=== PATIENT | female | born 1965 | race Caucasian/White ===

== ENCOUNTER → 2018-01-04 | Outpatient (CLI) | payer OTHER ==
[~2018-01-04] VITALS: Ht 162.6 cm; Wt 136.5 kg
[~2018-01-04] MED LIST: 00186-0370-20 IH; AMBIEN 5MG TABLE5 MG PO; APRESOLINE 25MG25 MG PO; BACTRIM DS 8001 TAB PO; CATAPRES-TTS 10.1 M1 TD; DULCOLAX10 MG RC; HCTZ 25MG TAB25 MG PO; HYZAAR 50-12.1 UDTAB PO; INSLANT SC; K-DUR 2020 MEQ PO; LEXAPRO20 MG PO; LOPRESSOR100 MG PO; LOVENOX 4040 MG/0.4 SQ; MUCINEX1200 MG PO; NICODERM C21 MG/PATC TOP; NORVASC 10MG10 MG PO; NYSTATIN1 POW; PERFOROMIS20 MCG/2 M IH; PREDNISONE10 MG PO; PRIL40 PO; PRINZIDE 12.5 M1 TA1 PO; PROAIR HFA0.09 MG/AC IH; PROTONIX 40MG T40 MG PO; PULMICORT0.5 MG/2 M IH; RT SPIRIVA18 MCG IH; SSKI1 GM/ML PO; TAMIFLU 75MG75 MG PO; TAMIFLU30 MG PO; TENORMIN 2525 MG/TAB PO; THEO-DUR 2200 MG/TAB PO; WOMEN'S ONE DAI1 TAB PO; XANAX 1MG1 MG PO; ZESTRIL40 MG PO
[2018-01-04 08:13] VITALS: BP 176/104; PULSE 60
== END ==
LOC: LIGHT 08:07
DX: K21.9 Gastro-esophageal reflux disease without esophagitis (principal); R73.01 Impaired fasting glucose; F33.9 Major depressive disorder, recurrent, unspecified; Z68.43 Body mass index [BMI] 50.0-59.9, adult; Z71.3 Dietary counseling and surveillance
CPT/HCPCS: G0463

== ENCOUNTER → 2018-01-16 | Outpatient (CLI) | payer OTHER | LOC: LIGHT 08:45 | DX: Z01.89 Encounter for other specified special examinations (principal) ==

== ENCOUNTER → 2018-02-02 | Outpatient (CLI) | payer OTHER ==
[~2018-02-02] VITALS: Ht 162.6 cm; Wt 136.3 kg
[2018-02-02 13:03] VITALS: BP 122/80; PULSE 80
== END ==
LOC: LIGHT 11:46
DX: K21.9 Gastro-esophageal reflux disease without esophagitis (principal); R73.01 Impaired fasting glucose; F33.9 Major depressive disorder, recurrent, unspecified; Z68.43 Body mass index [BMI] 50.0-59.9, adult; Z71.3 Dietary counseling and surveillance
CPT/HCPCS: G0463

== ENCOUNTER → 2018-03-09 | Outpatient (CLI) | payer OTHER ==
[~2018-03-09] VITALS: Ht 162.6 cm; Wt 134.5 kg
[2018-03-09 11:22] VITALS: BP 152/84; PULSE 60
== END ==
LOC: LIGHT 10:41
DX: K21.9 Gastro-esophageal reflux disease without esophagitis (principal); R73.01 Impaired fasting glucose; F33.9 Major depressive disorder, recurrent, unspecified; Z68.43 Body mass index [BMI] 50.0-59.9, adult; Z71.3 Dietary counseling and surveillance
CPT/HCPCS: G0463

== ENCOUNTER → 2018-03-09 | Outpatient (CLI) | payer MEDICAID | LOC: LIGHT 09:51 | DX: Z01.89 Encounter for other specified special examinations (principal) ==

== ENCOUNTER → 2018-04-13 | Outpatient (CLI) | payer OTHER ==
[~2018-04-13] VITALS: Ht 162.6 cm; Wt 134.5 kg
[2018-04-13 13:33] VITALS: BP 155/90; PULSE 60
== END ==
LOC: LIGHT 13:09
DX: K21.9 Gastro-esophageal reflux disease without esophagitis (principal); R73.01 Impaired fasting glucose; F33.9 Major depressive disorder, recurrent, unspecified; Z68.43 Body mass index [BMI] 50.0-59.9, adult; Z71.3 Dietary counseling and surveillance
CPT/HCPCS: G0463

== ENCOUNTER 2018-06-28 16:20 | Inpatient (IN) | payer MEDICARE, MEDICAID ==
[~2018-06-28] VITALS: Ht 162.6 cm; Wt 139.9 kg
[2019-03-05] MEDS ORDERED: LIPITOR 40MG TA40 MG PO (14:17)
[2019-03-05] MEDS ORDERED: PLAVIX 75MG TAB75 MG PO (14:17)
[2019-04-09] MEDS ORDERED: ASPIRIN E.C. 8181 MG PO (15:13)
[2019-04-18] VITALS (10 sets, daily range): BP systolic 141–177; BP diastolic 70–93; PULSE 86–118; TEMP 98.4–98.5
[2019-04-18] MEDS ORDERED: PLAVIX 75MG TAB75 MG PO (10:05)
--- NOTE | 2019-04-18 17:51 | NUR ---
Patient received post op to room 321-2. Report from Marie in [place]. Patient very alert upon arrival to room. Patient has has complaints of pain & nausea. Nausea improved after Iv dilaudid & is now able to rest. Her Bp has been elevated. Scds ble. IVf to Right wrist. K pad for gas pain to her L.shoulder. Her family has left for the evening. Will report to night nurse
--- NOTE | 2019-04-18 18:13 | NUR ---
Dr. Sullivan aware of elevated BP, patient to get evening medication today per home regiment. Patient also to get blue gatorade 8oz prior to clears
--- NOTE | 2019-04-18 18:54 | NUR ---
Patient medicated with zofran & dilaudid for papin & nausea.
--- NOTE | 2019-04-18 20:49 | NUR ---
Patient rating pain 7/10 to shoulders and abdomen. Has IVF to right wrist infusing without redness or swelling. Has bandaids x4 to abdomen with FINESSE drain to bulb suction. Medicated with [place] 5/325 1 tab po at this time with other HS meds. Has been up to void without problem. Drinking blue gatorade as ordered.
--- NOTE | 2019-04-18 22:30 | NUR ---
Patient reports pain pill resolved shoulder pain. Rates pain 5/10 at this time.
--- NOTE | 2019-04-19 00:45 | NUR ---
Patient awake, medicated with Zofran 4mg IVP and [place] 5/325mg 2 tabs po at this time for pain 5/10. Up to bathroom, voids 200cc without problem. FINESSE drain with 20cc bloody drainage emptied and placed back to bulb suction.
[2019-04-19 03:49] VITALS: BP 177/92; PULSE 117; TEMP 98.7
--- NOTE | 2019-04-19 04:21 | NUR ---
Having a headache, has not had alot of oral fluids, B/P remains elevated. AM dose of Tenormin given as well as dose of Xanax for mild anxiety. Encouraged to drink fluids for headache.
[2019-04-19 05:35] VITALS: BP 157/78; PULSE 103
--- NOTE | 2019-04-19 05:39 | NUR ---
Recheck on B/P 157/78 and reports headache is improved.
[2019-04-19 08:09] VITALS: BP 182/84; PULSE 98; TEMP 98.7
--- NOTE | 2019-04-19 08:55 | NUR ---
Assessment completed, alert/oriented, vital signs stable/ hypertensive but a.m meds given and will reassess BP, she reports her pain is controlled and minimal at this time, abdomen is soft and BS +/ she had several liquid bowel movmements as well, blue gatorade was drank last night and none observed in FINESSE drain/ she has had her barium swallow study this morning, moderate amount of serosanguinous ouptut documents in FINESSE, incicison sites and drain site dressings are all C/D/I, surrounding skin looks good, she is tolerating some clear liquids without N/V, sitting at edge of the bed and denies needs, will continue to monitor
--- NOTE | 2019-04-19 10:35 | NUR ---
RUBY met with the patient to discuss discharge plan. The patient lives in [place] with her , Christian. She reports independence with ADLs and does not use any DME. The patient's PCP is Dr. Dk Pantoja and she receives her medications at [facility]. She reports no difficulties obtaining her meds. The patient does not have advanced directives, but she was interested in obtaining a form for DPOA-HC. RUBY provided. The patient plans to return home with her upon discharge. No additional needs at this time.
[2019-04-19 12:18] VITALS: BP 183/98; PULSE 103; TEMP 98.1
[2019-04-19 15:22] VITALS: BP 164/71; PULSE 101; TEMP 97.2
--- NOTE | 2019-04-19 18:33 | NUR ---
discharge orders discussed with patient, isntructed to follow up as scheduled, continued all home meds except plavix, isntructed to follow post op diet instrucitons strictly, scripts for Odon and Zofran given , IV removed, family present, MARKETING OPERATIONS COORDINATOR escorted them out the door
== END 2019-04-19 18:33 | disposition home or self-care (01) | DRG 621 ==
LOC: SURG 07-12 09:45 → INPTSU 04-18 09:05 → SURG 04-18 09:45
PROVIDERS: ADMIT Surgery
PROC: 0DB64Z3 Excision of Stomach, Percutaneous Endoscopic Approach, Vertical (ICD-10-PCS; principal; 2019-04-18 11:00)
DX: E66.01 Morbid (severe) obesity due to excess calories (principal); Z68.43 Body mass index [BMI] 50.0-59.9, adult; I10 Essential (primary) hypertension; I25.10 Atherosclerotic heart disease of native coronary artery without angina pectoris; G47.33 Obstructive sleep apnea (adult) (pediatric); J44.9 Chronic obstructive pulmonary disease, unspecified; E88.81 Metabolic syndrome and other insulin resistance; F32.9 Major depressive disorder, single episode, unspecified; M06.9 Rheumatoid arthritis, unspecified; I25.2 Old myocardial infarction; Z79.02 Long term (current) use of antithrombotics/antiplatelets; Z95.5 Presence of coronary angioplasty implant and graft
CPT/HCPCS: A9284; J0360; J0690; J1100; J1170; J1885; J2405; J2550; J2704; J3010; J7030; J7120

== ENCOUNTER → 2019-04-09 | Outpatient (CLI) | payer MEDICARE, MEDICAID ==
[~2019-04-09] MED LIST changes: +ASPIRIN E.C. 8181 MG PO; +LIPITOR 40MG TA40 MG PO; +PLAVIX 75MG TAB75 MG PO
== END ==
LOC: LIGHT 13:14
DX: K21.9 Gastro-esophageal reflux disease without esophagitis (principal); R73.01 Impaired fasting glucose; F32.9 Major depressive disorder, single episode, unspecified; E66.01 Morbid (severe) obesity due to excess calories; Z68.43 Body mass index [BMI] 50.0-59.9, adult; Z71.3 Dietary counseling and surveillance

== ENCOUNTER → 2019-05-28 | Outpatient (CLI) | payer MEDICARE, MEDICAID ==
[~2019-05-28] VITALS: Ht 162.6 cm; Wt 122.7 kg
[2019-05-28 15:35] VITALS: BP 106/70; PULSE 64
== END ==
LOC: LIGHT 04-30 15:30
DX: K21.9 Gastro-esophageal reflux disease without esophagitis (principal); R73.01 Impaired fasting glucose; Z98.84 Bariatric surgery status; E66.01 Morbid (severe) obesity due to excess calories; Z71.3 Dietary counseling and surveillance

== ENCOUNTER → 2019-09-17 | Outpatient (CLI) | payer MEDICARE, MEDICAID ==
[~2019-09-17] VITALS: Ht 162.6 cm; Wt 104.8 kg
[~2019-09-17] MED LIST changes: +ZANTAC 150150 MG PO
[2019-09-17 13:23] VITALS: BP 116/80; PULSE 64
== END ==
LOC: LIGHT 07-09 15:01
DX: K21.9 Gastro-esophageal reflux disease without esophagitis (principal); R73.01 Impaired fasting glucose; Z98.84 Bariatric surgery status; E66.01 Morbid (severe) obesity due to excess calories; Z71.3 Dietary counseling and surveillance
CPT/HCPCS: G0463